=== PATIENT | male | born 1940 | race Native Hawaiian/Other Pacific Islander ===

== ENCOUNTER 2019-06-26 07:46 | Outpatient (CLI) | payer OTHER | END 2019-06-26 07:52 | disposition short-term general hospital (02) | LOC: AMB 07:46 | DX: S01.111A Laceration without foreign body of right eyelid and periocular area, initial encounter (principal); M54.2 Cervicalgia; M54.9 Dorsalgia, unspecified; M25.552 Pain in left hip; M79.605 Pain in left leg; M79.672 Pain in left foot; R22.42 Localized swelling, mass and lump, left lower limb; V49.40XA Driver injured in collision with unspecified motor vehicles in traffic accident, initial encounter; Y92.413 State road as the place of occurrence of the external cause | CPT/HCPCS: A0425; A0427 ==

== ENCOUNTER 2019-06-26 07:53 | Emergency (ER) | payer OTHER ==
[~2019-06-26] VITALS: Ht 185.4 cm; Wt 81.6 kg
[2019-06-26 07:53] VITALS: TEMP 99.9
[2019-06-26 08:27] LABS: PLATELET COUNT 186 K/uL (142-355)
[2019-06-26 08:36] LABS: POTASSIUM 3.6 mmol/L (3.6-5.2); SODIUM 142 mmol/L (136-145)
[2019-06-26 08:44] LABS: PARTIAL THROMBOPLASTIN TIME 22.7 SECONDS (24.5-33.6)
[2019-06-26 12:26] VITALS: BP 123/72
== END 2019-06-26 12:26 | disposition home or self-care (01) ==
LOC: ED 08:02
PROVIDERS: Emergency Medicine Emergency Medical Services
DX: S00.93XA Contusion of unspecified part of head, initial encounter (principal); S10.93XA Contusion of unspecified part of neck, initial encounter; S40.012A Contusion of left shoulder, initial encounter; S40.011A Contusion of right shoulder, initial encounter; S50.12XA Contusion of left forearm, initial encounter; S40.022A Contusion of left upper arm, initial encounter; S80.12XA Contusion of left lower leg, initial encounter; S80.11XA Contusion of right lower leg, initial encounter; R10.84 Generalized abdominal pain; M54.2 Cervicalgia; V59.40XA Driver of pick-up truck or van injured in collision with unspecified motor vehicles in traffic accident, initial encounter
CPT/HCPCS: 80053; 80307; 80320; 81000; 82550; 84484; 85027; 85610; 85730; 93005; 96360; 96361; 96375; 99284; J1885

== ENCOUNTER 2020-10-02 09:58 | Outpatient (CLI) | payer OTHER | END 2020-10-02 20:40 | disposition home or self-care (01) | LOC: RAD 09:58 | PROVIDERS: ATTEND Nurse Practitioner Family | DX: R07.81 Pleurodynia (principal) ==

== ENCOUNTER 2020-10-28 10:17 | Outpatient (CLI) | payer OTHER | END 2020-10-28 21:05 | disposition home or self-care (01) | LOC: US 10:17 | PROVIDERS: ATTEND Nurse Practitioner Family | DX: K11.8 Other diseases of salivary glands (principal) ==